=== PATIENT | female | born 1965 | race Caucasian/White ===

== ENCOUNTER 2018-08-27 06:00 | Inpatient (IN) | payer OTHER ==
[2018-08-23 17:48] VITALS: BMI 21.6
[2018-08-27] VITALS (21 sets, daily range): BP systolic 101–126; BP diastolic 50–70; PULSE 69–97; RESP 12–21; Ht 172.7 cm; Wt 64.3 kg
[~2018-08-27] VITALS: Ht 172.7 cm; Wt 64.3 kg
[~2018-08-27 06:00] MED LIST: CEFAZOLIN 2 GM/50 ML (PMX) 50 ML IVPB ONE; LACTATED RINGER'S 1,000 ML IV SCH
[2018-08-27] MEDS ORDERED: KETOROLAC 30 MG INJ ONE (06:27)
[2018-08-27] MEDS ORDERED: MIDAZOLAM 1 MG/ML 2 ML INJ ONE (06:27)
[2018-08-27] MEDS ORDERED: ONDANSETRON 4 MG INJ ONE (06:27)
[2018-08-27] MEDS ORDERED: PROPOFOL 20 ML ONE ×2 (06:27→08:20)
[2018-08-27] MEDS ORDERED: CEFAZOLIN 1 GM INJ ONE (06:27)
[2018-08-27] MEDS ORDERED: SUCCINYLCHOLINE CHLORIDE 100 MG/5 ML SYG IV ONE (06:28)
[2018-08-27] MEDS ORDERED: ROCURONIUM 50 MG INJ ONE ×2 (06:28→10:28)
[2018-08-27] MEDS ORDERED: EPHEDrine 25 MG/5 ML SYG ONE (06:30)
[2018-08-27] MEDS ORDERED: DESFLURANE 15 MIN ONE (06:30)
[2018-08-27] MEDS ORDERED: ATOR20TA38 PO (06:53)
[2018-08-27] MEDS ORDERED: GELATIN SIZE 100 SPONGE ONE (06:56)
[2018-08-27] MEDS ORDERED: THROMBIN 5000 UNIT VIAL ONE (06:56)
[2018-08-27] MEDS ORDERED: BUPIVACAINE 0.5%/EPI (SDV) 30 ML INJ ONE (06:57)
[2018-08-27] MEDS ORDERED: POLYMYXIN/BACITRACIN 1L IRRIG ONE (06:57)
--- NOTE | 2018-08-27 06:58 | PREAC ---
Date/Time of Note Date/Time of Note DATE: 08/27/18 TIME: 06:56 Anesthesia Eval and Record Evaluation Time Pre-Procedure Interview DATE: 08/27/18 TIME: 06:56 Age 53 Sex female NPO: 8 hrs Preoperative diagnosis C4-7 Diskopathy Planned procedure C4-7 Anterior Fusion Past Medical History Past Medical History: Includes Cardio: Dyslipidemia Pulm: Smoking Hx Surgery & Anesthesia Issues No known issue Meds Anticoagulation: No Beta Supriya within 24 hr: No Reason Beta Supriya not given: Pt. not on B-Supriya Reported Medications Atorvastatin Calcium* (Atorvastatin Calcium*) 20 Mg Tablet, 20 MG PO QHS, #30 TAB 08/27/18 Current Medications Lactated Ringer's 1,000 ml @ 0 mls/hr Q0M IV ; Start 08/27/18 at 06:00; Stop 08/27/18 at 23:00 Meds reviewed: Yes Allergies Coded Allergies: No Known Allergy (Unverified , 08/27/18) Allergies Reviewed: Yes Labs/Studies Labs Reviewed: Reviewed by anesthesiologist test: N/A Pre-procedure Exam Airway: Adequate mouth opening Mallampati: Mallampati II Teeth: Normal Lung: Normal Heart: Normal ASA Physical Status ASA physical status: 2 Emergency: None Planned Anesthetic General/MAC: ETT Pre-operative Attestations Prior to commencing anesthesia and surgery, the patient was re-evaluated, there was verification of: *The patient's identity *The results of appropriate recent lab work and preoperative vital signs *The above evaluation not changing prior to induction *Anesthetic plan, risk benefits, alternative and complications discussed with patient/family; questions answered; patient/family understands, accepts and wishes to proceed. YAEL CRUZ MD Aug 27, 2018 06:58
--- NOTE | 2018-08-27 07:13 | HPN ---
Date/Time of Note Date/Time of Note DATE: 08/27/18 TIME: 07:13 Interval H&P Admission Note Pt. seen H&P reviewed: No system changes JACKELIN ALCALA MD Aug 27, 2018 07:13
[2018-08-27] MEDS ORDERED: EPINEPHrine 0.1 MG/ML SYG ONE (08:20)
[2018-08-27] MEDS ORDERED: FENTAnyl 50 MCG/ML VIAL ONE ×4 (08:48→13:11)
[2018-08-27] MEDS ORDERED: HYDROmorphONE 1 MG/5 ML IV SYRINGE IV PRN (10:00)
[2018-08-27] MEDS ORDERED: ONDANSETRON 4 MG INJ IV PRN ×2 (10:00→14:30)
[2018-08-27] MEDS ORDERED: FENTAnyl 50 MCG/ML VIAL IV PRN (10:00)
[2018-08-27] MEDS ORDERED: DEXAMETHASONE 4 MG/ML 5 ML INJ ONE (10:14)
[2018-08-27] MEDS ORDERED: LABETALOL HCL 20MG INJ ONE (14:16)
[2018-08-27] MEDS ORDERED: HYDROCODONE/APAP (5/325) TAB PO PRN ×2 (14:30)
[2018-08-27] MEDS ORDERED: HYDROmorphONE 0.2 MG/ML PCA IV SCH (14:30)
[2018-08-27] MEDS ORDERED: NALOXONE (0.4 MG/ML) INJ IV PRN (14:30)
[2018-08-27] MEDS ORDERED: AL HYDROX/MG HYDROX/SIMETH 30 ML CUP PO PRN (14:30)
[2018-08-27] MEDS ORDERED: NACL 0.9% 3 ML SYG IV SCH (14:30)
[2018-08-27] MEDS ORDERED: PROCHLORPERAZINE 10 MG TAB PO PRN (14:30)
--- NOTE | 2018-08-27 14:32 | OPR ---
Date/Time of Note Date/Time of Note DATE: 08/27/18 TIME: 14:23 Operative Report Free Text/Dictation DATE OF OPERATION: 08/27/2018 PREOPERATIVE DIAGNOSES: 1. C4-5 degenerative disk disease with severe central and foraminal stenosis with myeloradiculopathy 2. C5-6 degenerative disk disease with severe central and foraminal stenosis with myeloradiculopathy 3. C6-7 degenerative disk disease with severe central and foraminal stenosis w ith myeloradiculopathy 4. Adult Degenerative Cervical scoliosis POSTOPERATIVE DIAGNOSES: 1. C4-5 degenerative disk disease with severe central and foraminal stenosis with myeloradiculopathy 2. C5-6 degenerative disk disease with severe central and foraminal stenosis with myeloradiculopathy 3. C6-7 degenerative disk disease with severe central and foraminal stenosis with myeloradiculopathy 4. Adult Degenerative Cervical scoliosis OPERATION PERFORMED: 1. Anterior cervical level C4-5 diskectomy with central and foraminal decompression 2. Anterior cervical disc C4-5 instrumented fusion with allograft 3.Anterior cervical level C5-6 diskectomy with central and foraminal decompression 4. Anterior cervical disc C5-6 instrumented fusion with allograft 5.Anterior cervical level C6-7 diskectomy with central and foraminal decompression 6. Anterior cervical disc C6-7 instrumented fusion with allograft 7. Use of operative microscope SURGEON: Jackelin Alcala MD NUTRITION ASSOCIATE: JOSE Bejarano INDICATIONS: Patient is a 53 -year-old female who presents with a several year history of neck and bilateral upper extremity pain with weakness. She also complained of issues with gait, balance and manual dexterity. After having failed all attempts at conservative management, surgical treatment was recommended. She understood the risks included, but were not limited to, infection, neurologic injury, verve root and spinal cord injury, blood loss, dysphagia, dysphonia, espohogeal injury, dural tear, pseudarthosis, adjacent segment disease, persistence of preoperative symptoms and a potential need for further operative procedures and she elected to proceed with surgery. PROCEDURE IN DETAIL: The patient was identified in the pre-operative area where the operative site was marked in indelible ink. He was brought in the operating room. General anesthesia was obtained. Preoperative antibiotics were given. She was carefully positioned supine on the radiolucent table. The arms were padded and tucked at the sides. The neck was sterilely prepped and draped in the usual fashion. A standard left-sided skin incision was made in a prominent anterior skin fold. This was continued down through subcutaneous tissue to the platysma fascia. Full-thickness skin flaps were developed. The platysma was split in line with the direction of its fibers. The dissection proceeded through the deep cervical fascia at the interval between the esophagus and spine. The prevertebral fascia was carefully incised, cleared off at the anterior aspect of the C4-5 disk space. The anterior longitudinal ligament was carefully isolated as was the longus coli bilaterally. A [place] retraction cannula was placed into the C5 vertebral body, and an intraoperative radiograph was obtained to confirm the location of the midline along with the operative level. Once this was confirmed, a 2nd [place] pin was placed in the C4 vertebral body, and the longus colli was mobilized bilaterally using bipolar cautery and an elevator. A deep self-retaining retractor was placed underneath the longus colli bilaterally and then distraction was applied across the interspace. The operative microscope was at this point brought in. The osteophyte projecting over the anterior aspect of the C4-5 disk space was at this point resected with a spinal rongeur, and then the anterior portion of the disk was incised with a #15 blade. The disk was excised in its entirety using a series of pituitary rongeurs and angled curettes back to the posterior longitudinal ligament. The uncovertebral osteophyte was resected to allow for foraminal decompression. A foraminotomy was performed bilaterally until a probe could be easily passed along the pathway of the C5 nerve roots. The posterior disk and the PLL were also removed using a nerve hook and a 2mm kerrison. The cord was noted to be decompressed. Hemostasis was obtained at this point, and then a series of trial sizers were used to select an appropriated size allograft spacer. Care was take not to disrupt the endplates. Intraoperative radiographs demonstrated good alignment of the trial, and then the final implant was selected and then inserted into the disk space. This was positioned appropriately and extended to the back of the C4 and C5 vertebral bodies. We used a 5mm height and 7 degree lordotic allograft implant. We then focused on the C5-6 level. Once this was confirmed, a 2nd [place] pin was placed in the C6 vertebral body, and the longus colli was mobilized bilaterally using bipolar cautery and an elevator. A deep self-retaining retractor was placed underneath the longus colli bilaterally and then distraction was applied across the interspace. The operative microscope was at this point brought in. The osteophyte projecting over the anterior aspect of the C5-6 disk space was at this point resected with a spinal rongeur, and then the anterior portion of the disk was incised with a #15 blade. The disk was excised in its entirety using a series of pituitary rongeurs and angled curettes back to the posterior longitudinal ligament. The uncovertebral osteophyte was resected to allow for foraminal decompression. A foraminotomy was performed bilaterally until a probe could be easily passed along the pathway of the C6 nerve roots. The posterior disk and the PLL were also removed using a nerve hook and a 2mm kerrison. The cord was noted to be decompressed. Hemostasis was obtained at this point, and then a series of trial sizers were used to select an appropriated size allograft spacer. Care was take not to disrupt the endplates. Intraoperative radiographs demonstrated good alignment of the trial, and then the final implant was selected and then inserted into the disk space. This was positioned appropriately and extended to the back of the C5 and C6 vertebral bodies. We used a 6mm height and 7 degree lordotic allograft implant. We then focused on the C6-7 level. Once this was confirmed, a 2nd [place] pin was placed in the C7 vertebral body, and the longus colli was mobilized bilaterally using bipolar cautery and an elevator. A deep self-retaining retractor was placed underneath the longus colli bilaterally and then distraction was applied across the interspace. The operative microscope was at this point brought in. The osteophyte projecting over the anterior aspect of the C6-7 disk space was at this point resected with a spinal rongeur, and then the anterior portion of the disk was incised with a #15 blade. The disk was excised in its entirety using a series of pituitary rongeurs and angled curettes back to the posterior longitudinal ligament. The uncovertebral osteophyte was resected to allow for foraminal decompression. A foraminotomy was performed bilaterally until a probe could be easily passed along the pathway of the C7 nerve roots. The posterior disk and the PLL were also removed using a nerve hook and a 2mm kerrison. The cord was noted to be decompressed. Hemostasis was obtained at this point, and then a series of trial sizers were used to select an appropriated size allograft spacer. Care was take not to disrupt the endplates. Intraoperative radiographs demonstrated good alignment of the trial, and then the final implant was selected and then inserted into the disk space. This was positioned appropriately and extended to the back of the C6 and C7 vertebral bodies. We used a 6mm height and 7 degree lordotic allograft implant. We then chose an appropriate sized plate (45mm) was placed and secured it in standard fashion. X-Rays were taken to ensure appropriate alignment and length of the plate as well as screw sizes. An extra 45 minutes was taken during this procedure due to the complexity of the case. Patient has a cervical scoliosis with significant disk space collapse with large anterior osteophytes. Due to the patients anatomy ( 18 degree cervical scoliosis deformity) and pathology, additional time was taken for dissection and implant placement. The operative site was washed out extensively with sterile normal saline. There was no significant bleeding. The Bland pins were removed, and the sites were blocked off with bone wax. The platysma fascia was then closed with 3-0 Vicryl s uture in a running simple fashion over a medium hemovac drain, followed by 4-0 moncryl to close the skin in a running subcuticular fashion. Dermabond was placed, followed by a sterile dressing. The patient was extubated and transferred out to the postanesthesia care unit in a hard collar in good condition. There were no complications. Procedure Date: Aug 27, 2018 Preoperative Diagnosis PREOPERATIVE DIAGNOSES: 1. C4-5 degenerative disk disease with severe central and foraminal stenosis with myeloradiculopathy 2. C5-6 degenerative disk disease with severe central and foraminal stenosis with myeloradiculopathy 3. C6-7 degenerative disk disease with severe central and foraminal stenosis with myeloradiculopathy 4. Adult Degenerative Cervical scoliosis Postoperative Diagnosis 1. C4-5 degenerative disk disease with severe central and foraminal stenosis with myeloradiculopathy 2. C5-6 degenerative disk disease with severe central and foraminal stenosis with myeloradiculopathy 3. C6-7 degenerative disk disease with severe central and foraminal stenosis with myeloradiculopathy 4. Adult Degenerative Cervical scoliosis Operation/Procedure Performed 1. Anterior cervical level C4-5 diskectomy with central and foraminal decompression 2. Anterior cervical disc C4-5 instrumented fusion with allograft 3.Anterior cervical level C5-6 diskectomy with central and foraminal decompression 4. Anterior cervical disc C5-6 instrumented fusion with allograft 5.Anterior cervical level C6-7 diskectomy with central and foraminal decompression 6. Anterior cervical disc C6-7 instrumented fusion with allograft 7. Use of operative microscope Surgeon see signature line Quality Nurse JOSE Bejarano Anesthesia Type: general Estimated Blood Loss: 50 - 100 ml's Transfusion none Specimen none Grafts/Implants none Complications none Pt Condition Post Procedure: stable Disposition: PACU Procedure Description PROCEDURE IN DETAIL: The patient was identified in the pre-operative area where the operative site was marked in indelible ink. He was brought in the operating room. General anesthesia was obtained. Preoperative antibiotics were given. She was carefully positioned supine on the radiolucent table. The arms were padded and tucked at the sides. The neck was sterilely prepped and draped in the usual fashion. A standard left-sided skin incision was made in a prominent anterior skin fold. This was continued down through subcutaneous tissue to the platysma fascia. Full-thickness skin flaps were developed. The platysma was split in line with the direction of its fibers. The dissection proceeded through the deep cervical fascia at the interval between the esophagus and spine. The prevertebral fascia was carefully incised, cleared off at the anterior aspect of the C4-5 disk space. The anterior longitudinal ligament was carefully isolated as was the longus coli bilaterally. A [place] retraction cannula was placed into the C5 vertebral body, and an intraoperative radiograph was obtained to confirm the location of the midline along with the operative level. Once this was confirmed, a 2nd [place] pin was placed in the C4 vertebral body, and the longus colli was mobilized bilaterally using bipolar cautery and an elevator. A deep self-retaining retractor was placed underneath the longus colli bilaterally and then distraction was applied across the interspace. The operative microscope was at this point brought in. The osteophyte projecting over the anterior aspect of the C4-5 disk space was at this point resected with a spinal rongeur, and then the anterior portion of the disk was incised with a #15 blade. The disk was excised in its entirety using a series of pituitary rongeurs and angled curettes back to the posterior longitudinal ligament. The uncovertebral osteophyte was resected to allow for foraminal decompression. A foraminotomy was performed bilaterally until a probe could be easily passed along the pathway of the C5 nerve roots. The posterior disk and the PLL were also removed using a nerve hook and a 2mm kerrison. The cord was noted to be decompressed. Hemostasis was obtained at this point, and then a series of trial sizers were used to select an appropriated size allograft spacer. Care was take not to disrupt the endplates. Intraoperative radiographs demonstrated good alignment of the trial, and then the final implant was selected and then inserted into the disk space. This was positioned appropriately and extended to the back of the C4 and C5 vertebral star dies. We used a 5mm height and 7 degree lordotic allograft implant. We then focused on the C5-6 level. Once this was confirmed, a 2nd [place] pin was placed in the C6 vertebral body, and the longus colli was mobilized bilaterally using bipolar cautery and an elevator. A deep self-retaining retractor was placed underneath the longus colli bilaterally and then distraction was applied across the interspace. The operative microscope was at this point brought in. The osteophyte projecting over the anterior aspect of the C5-6 disk space was at this point resected with a spinal rongeur, and then the anterior portion of the disk was incised with a #15 blade. The disk was excised in its entirety using a series of pituitary rongeurs and angled curettes back to the posterior longitudinal ligament. The uncovertebral osteophyte was resected to allow for foraminal decompression. A foraminotomy was performed bilaterally until a probe could be easily passed along the pathway of the C6 nerve roots. The posterior disk and the PLL were also removed using a nerve hook and a 2mm kerrison. The cord was noted to be decompressed. Hemostasis was obtained at this point, and then a series of trial sizers were used to select an appropriated size allograft spacer. Care was take not to disrupt the endplates. Intraoperative radiographs demonstrated good alignment of the trial, and then the final implant was selecte d and then inserted into the disk space. This was positioned appropriately and extended to the back of the C5 and C6 vertebral bodies. We used a 6mm height and 7 degree lordotic allograft implant. We then focused on the C6-7 level. Once this was confirmed, a 2nd [place] pin was placed in the C7 vertebral body, and the longus colli was mobilized bilaterally using bipolar cautery and an elevator. A deep self-retaining retractor was placed underneath the longus colli bilaterally and then distraction was applied across the interspace. The operative microscope was at this point brought in. The osteophyte projecting over the anterior aspect of the C6-7 disk space was at this point resected with a spinal rongeur, and then the anterior portion of the disk was incised with a #15 blade. The disk was excised in its entirety using a series of pituitary rongeurs and angled curettes back to the posterior longitudinal ligament. The uncovertebral osteophyte was resected to allow for foraminal decompression. A foraminotomy was performed bilaterally until a probe could be easily passed along the pathway of the C7 nerve roots. The posterior disk and the PLL were also removed using a nerve hook and a 2mm kerrison. The cord was noted to be decompressed. Hemostasis was obtained at this point, and then a series of trial sizers were used to select an appropriated size allograft spacer. Care was take not to disrupt the endplates. Intraoperative radiographs demonstrated good alignment of the trial, and then the final implant was select ed and then inserted into the disk space. This was positioned appropriately and extended to the back of the C6 and C7 vertebral bodies. We used a 6mm height and 7 degree lordotic allograft implant. We then chose an appropriate sized plate (45mm) was placed and secured it in standard fashion. X-Rays were taken to ensure appropriate alignment and length of the plate as well as screw sizes. An extra 45 minutes was taken during this procedure due to the complexity of the case. Patient has a cervical scoliosis with significant disk space collapse with large anterior osteophytes. Due to the patients anatomy ( 18 degree cervical scoliosis deformity) and pathology, additional time was taken for dissection and implant placement. The operative site was washed out extensively with sterile normal saline. There was no significant bleeding. The Bland pins were removed, and the sites were blocked off with bone wax. The platysma fascia was then closed with 3-0 Vicryl suture in a running simple fashion over a medium hemovac drain, followed by 4-0 moncryl to close the skin in a running subcuticular fashion. Dermabond was placed, followed by a sterile dressing. The patient was extubated and transferred out to the postanesthesia care unit in a hard collar in good condition. There were no complications. We will observe her in the PACU. If she shows any signs of respiratory distress we may admit her to the ICU for 24 observation. JACKELIN ALCALA MD Aug 27, 2018 14:32
--- NOTE | 2018-08-27 14:40 | PAC ---
Date/Time of Note Date/Time of Note DATE: 08/27/18 TIME: 14:40 Post-Anesthesia Notes Post-Anesthesia Note Last documented vital signs Vital Signs Date Temp Pulse Resp B/P (MAP) Pulse Ox O2 O2 Flow FiO2 Time Delivery Rate 08/27/18 97.7 90 18 117/68 95 06:55 (84) Activity: WNL Respiratory function: WNL Cardiovascular function: WNL Mental status: Baseline Pain reasonably controlled: Yes Hydration appropriate: Yes Nausea/Vomiting absent: Yes YAEL CRUZ MD Aug 27, 2018 14:40
[2018-08-27] MEDS ORDERED: ACETAMINOPHEN 1000MG/100ML IV 100 ML IVPB ONE (15:00)
[2018-08-27] MEDS: CEFAZOLIN 1 GM/50 ML (PMX) 50 ML IVPB SCH ×2 (18:33→23:54)
[2018-08-27] MEDS: DEXTROSE 5%-0.45% NACL 1,000 ML IV SCH (18:33)
--- NOTE | 2018-08-27 19:21 | CONS ---
DATE OF ADMISSION: 08/27/2018 DATE OF CONSULTATION: TYPE OF CONSULTATION: Medical. Thank you, Dr. Alcala, for asking me to participate in medical management of this patient. REASON FOR CONSULTATION: Hyperlipidemia. HISTORY OF PRESENT ILLNESS: This 53-year-old female is now postop a cervical spine surgery by Dr. Emir osorio. She is awake and alert. She is having some neck pain that is being managed with medication . She says that, preoperatively, she was having neck pain into the shoulders and down her left arm w ith numbness. She, preoperatively, was diagnosed with multilevel cervical spine disease with severe central and foraminal stenosis with myeloradiculopathy. She underwent an anterior cervical diskectom y with central and foraminal decompression at levels C4-C5, C5-C6 and C6-C7 with instrumented fusion of those levels. The patient denies any prior history of heart disease or lung disease. She denies chest pain or shortness of breath at this time. PAST MEDICAL HISTORY: Remarkable for hyperlipidemia. PAST SURGICAL HISTORY: She underwent an oophorectomy and tubal ligation previously. SOCIAL HISTORY: She is a daily smoker. ALLERGIES: SHE HAS NO KNOWN DRUG ALLERGIES. CURRENT MEDICATION: Atorvastatin 20 mg a day. PHYSICAL EXAMINATION: GENERAL: Examination at this time reveals a well-developed female in no apparent distress. VITAL SIGNS: Temperature 98, pulse of 80, respirations 17, blood pressure 112/51, O2 saturation 99% on 2 liter nasal cannula. HEENT: Head is normocephalic. Eyes: Extraocular muscles intact. Nose and mouth are normal. NECK: She has a rigid neck brace on. She has a surgical wound anterior with a drain in place. LUNGS: Clear to auscultation. HEART: Regular rhythm. No murmurs, gallops or rubs. ABDOMEN: Soft, nontender, no masses or megaly. EXTREMITIES: No peripheral edema. IMPRESSION: This patient is now postop a cervical spine surgery for multilevel cervical spine stenos is. She is doing well. She has no chest pain or shortness of breath. I will manage the patient's h yperlipidemia. PLAN: 1. Resume routine medications. 2. Check labs in the morning. 3. Postop cervical spine surgery protocol. 4. I will follow the patient along with you medically. Dictated By: RON OCONNOR MD, ND/MIKEL Conf#: [id number] [facility]#: [id number] CC: JACKELIN ALCALA MD;*End*
[2018-08-27] MEDS: ATORVASTATIN 20 MG TAB PO SCH (22:36)
[2018-08-28] MEDS: DEXTROSE 5%-0.45% NACL 1,000 ML IV SCH ×4 (00:16→20:16)
[2018-08-28 02:40] VITALS: BP 118/66; PULSE 74; RESP 18
[2018-08-28] MEDS: CEFAZOLIN 1 GM/50 ML (PMX) 50 ML IVPB SCH ×2 (05:01→12:52)
[2018-08-28 07:23] VITALS: BP 121/62; PULSE 72; RESP 19
[2018-08-28] MEDS: DOCUSATE SODIUM 100 MG CAP PO SCH ×2 (08:39→20:00)
--- NOTE | 2018-08-28 12:22 | CONS ---
Assessment/Plan Assessment/Plan Hospital Course (Demo Recall) 1. Daina is now 1 day postop a cervical spine surgery, multilevel discectomy and fusion. She is feeling better and is doing well. She is awake and alert. She has been afebrile and her vital signs are stable. Laboratory tests are acceptable. She can continue physical therapy as tolerated. Consultation Date/Type/Reason Admit Date/Time Aug 27, 2018 at 06:00 Initial Consult Date Date/Time of Note DATE: 08/28/18 TIME: 12:19 24 HR Interval Summary Free Text/Dictation This patient is now 1 day postop a cervical spine surgery. She is awake and alert. She is feeling better. She has been up walking with physical therapy. Constitutional: no complaints, improved Exam/Review of Systems Exam Vitals Vital Signs Date Temp Pulse Resp B/P (MAP) Pulse Ox O2 O2 Flow FiO2 Time Delivery Rate 08/28/18 16 09:00 08/28/18 98.2 72 121/62 99 07:23 (81) 08/27/18 Nasal 2.0 20:10 Cannula Intake and Output 08/27/18 08/27/18 08/28/18 1515:00 23:00 07:00 IntakeIntake Total 3350 ml 100 ml 1200 ml OutputOutput Total 800 ml 1200 ml BalanceBalance 2550 ml 100 ml 0 ml Constitutional: alert, oriented, well developed Respiratory: clear to auscultation, normal air movement Cardiovascular: regular rate and rhythm Gastrointestinal: soft, non-tender Musculoskeletal: nl extremities to inspection Results Result Diagram: 08/28/18 0457 08/28/18 0457 Results 24hrs Laboratory Tests Test 08/28/18 04:57 08/28/18 07:37 Hemoglobin 12.1 Hematocrit 36.3 L Sodium Level 140 Potassium Level 4.9 Chloride Level 105 Carbon Dioxide Level 28 Anion Gap 7 Blood Urea Nitrogen 14 Creatinine 0.69 Est Glomerular Filtrat Rate mL/min > 60 Glucose Level 153 Calcium Level 8.7 Lab Scanned Report REFERENCE LAB Medications Medication Current Medications Dextrose/Sodium Chloride 1,000 ml @ 100 mls/hr Q10H IV Last administered on 08/28/18at 05:00; Admin Dose 100 MLS/HR; Start 08/27/18 at 14:16 Acetaminophen/ Hydrocodone Bitart ([place] (5/325)) 1 tab Q4H PRN PO .PAIN 1-5; Start 08/27/18 at 14:30 Acetaminophen/ Hydrocodone Bitart ([place] (5/325)) 2 tab Q4H PRN PO .PAIN 6-10; Start 08/27/18 at 14:30 Cefazolin Sodium 50 ml @ 100 mls/hr Q6 IVPB Last administered on 08/28/18 05:01; Admin Dose 100 MLS/HR; Start 08/27/18 at 18:00; Stop 08/28/18 at 12:29 Prochlorperazine (Compazine) 10 mg Q4H PRN PO NAUSEA/VOMITING; Start 08/27/18 at 14:30 Ondansetron HCl (Zofran Inj) 4 mg Q6H PRN IV NAUSEA/VOMITING Last administered on 08/28/18 08:38; Admin Dose 4 MG; Start 08/27/18 at 14:30 Al Hydrox/Mg Hydrox/Simethicone (Mag-Al Plus) 15 ml Q4H PRN PO .CONSTIPATION; Start 08/27/18 at 14:30 Docusate Sodium (Colace) 100 mg BID PO Last administered on 08/28/18 08:39; Admin Dose 100 MG; Start 08/28/18 at 09:00 Acetaminophen (Tylenol Tab) 650 mg Q4H PRN PO TEMP GREATER THAN 101F OR GA; Start 08/27/18 at 14:30 IV Flush (NS 3 ml) 3 ml PER PROTOCOL IV ; Start 08/27/18 at 14:30 Hydromorphone HCl (Dilaudid ELECTROCARDIOGRAPH TECHNICIAN) Q4PCA IV Last administered on 08/27/18at 14:52; Admin Dose 6 MG; Start 08/27/18 at 14:30 Naloxone HCl (Narcan) 0.2 mg Q2M PRN IV RR 8 BREATHS/MIN OR LESS; Start 08/27/18 at 14:30 Atorvastatin Calcium (Lipitor) 20 mg QHS PO Last administered on 08/27/18at 22:36; Admin Dose 20 MG; Start 08/27/18 at 21:00 RON OCONNOR MD Aug 28, 2018 12:22
--- NOTE | 2018-08-28 12:26 | CONS ---
Consultation Date/Type/Reason Admit Date/Time Aug 27, 2018 at 06:00 Initial Consult Date Date/Time of Note DATE: 08/28/18 TIME: 12:20 24 HR Interval Summary Free Text/Dictation S: 53 yo F POD#1 s/p C4-C7 ACDF. Patient is tolerating clears. She denies SOB. She has been OOB w/ PT. Pain controlled w/ SPOOLING MACHINE OPERATOR but this is giving her nausea. O: Vital Signs Date Temp Pulse Resp B/P (MAP) Pulse Ox O2 O2 Flow FiO2 Time Delivery Rate 08/28/18 16 09:00 08/28/18 98.2 72 19 121/62 99 07:23 (81) 08/28/18 18 05:00 Gen: AAOx3, NAD Spine: / LUE D/B/T/WE/WF, +SILT C5-T1, incision C/D/I Drain outut: 50 mL A/P: 53 yo F POD#1 s/p C4-C7 ACDF 1. 10mg IV Decadron x 1 2. D/C SPOOLING MACHINE OPERATOR 3. Start PO [place] 4.appreciate med recs 5. continue drain Exam/Review of Systems Exam Vitals Vital Signs Date Temp Pulse Resp B/P (MAP) Pulse Ox O2 O2 Flow FiO2 Time Delivery Rate 08/28/18 16 09:00 08/28/18 98.2 72 121/62 99 07:23 (81) 08/27/18 Nasal 2.0 20:10 Cannula Intake and Output 08/27/18 08/27/18 08/28/18 1515:00 23:00 07:00 IntakeIntake Total 3350 ml 100 ml 1200 ml OutputOutput Total 800 ml 1200 ml BalanceBalance 2550 ml 100 ml 0 ml Results Result Diagram: 08/28/18 0457 08/28/18 0457 Results 24hrs Laboratory Tests Test 08/28/18 04:57 08/28/18 07:37 Hemoglobin 12.1 Hematocrit 36.3 L Sodium Level 140 Potassium Level 4.9 Chloride Level 105 Carbon Dioxide Level 28 Anion Gap 7 Blood Urea Nitrogen 14 Creatinine 0.69 Est Glomerular Filtrat Rate mL/min > 60 Glucose Level 153 Calcium Level 8.7 Lab Scanned Report REFERENCE LAB Medications Medication Current Medications Dextrose/Sodium Chloride 1,000 ml @ 100 mls/hr Q10H IV Last administered on 08/28/18at 05:00; Admin Dose 100 MLS/HR; Start 08/27/18 at 14:16 Acetaminophen/ Hydrocodone Bitart ([place] (5/325)) 1 tab Q4H PRN PO .PAIN 1-5; Start 08/27/18 at 14:30 Acetaminophen/ Hydrocodone Bitart ([place] (5/325)) 2 tab Q4H PRN PO .PAIN 6-10; Start 08/27/18 at 14:30 Cefazolin Sodium 50 ml @ 100 mls/hr Q6 IVPB Last administered on 08/28/18at 05:01; Admin Dose 100 MLS/HR; Start 08/27/18 at 18:00; Stop 08/28/18 at 12:29 Prochlorperazine (Compazine) 10 mg Q4H PRN PO NAUSEA/VOMITING; Start 08/27/18 at 14:30 Ondansetron HCl (Zofran Inj) 4 mg Q6H PRN IV NAUSEA/VOMITING Last administered on 08/28/18at 08:38; Admin Dose 4 MG; Start 08/27/18 at 14:30 Al Hydrox/Mg Hydrox/Simethicone (Mag-Al Plus) 15 ml Q4H PRN PO .CONSTIPATION; Start 08/27/18 at 14:30 Docusate Sodium (Colace) 100 mg BID PO Last administered on 08/28/18at 08:39; Admin Dose 100 MG; Start 08/28/18 at 09:00 Acetaminophen (Tylenol Tab) 650 mg Q4H PRN PO TEMP GREATER THAN 101F OR GA; Start 08/27/18 at 14:30 IV Flush (NS 3 ml) 3 ml PER PROTOCOL IV ; Start 08/27/18 at 14:30 Hydromorphone HCl (Dilaudid SPOOLING MACHINE OPERATOR) Q4PCA IV Last administered on 08/27/18at 14:52; Admin Dose 6 MG; Start 08/27/18 at 14:30 Naloxone HCl (Narcan) 0.2 mg Q2M PRN IV RR 8 BREATHS/MIN OR LESS; Start 08/27/18 at 14:30 Atorvastatin Calcium (Lipitor) 20 mg QHS PO Last administered on 08/27/18at 22:36; Admin Dose 20 MG; Start 08/27/18 at 21:00 JACKELIN ALCALA MD Aug 28, 2018 12:26
[2018-08-28] MEDS ORDERED: DEXAMETHASONE 10 MG/ML 1 ML INJ IV ONE (12:30)
[2018-08-28] MEDS ORDERED: ACETAMINOPHEN 1000MG/100ML IV 100 ML IVPB SCH ×2 (13:00)
[2018-08-28] MEDS: LIDOCAINE 5% PATCH TD SCH (14:06)
[2018-08-28 14:27] VITALS: BP 132/61; PULSE 73; RESP 18
[2018-08-28 19:39] VITALS: BP 120/73; PULSE 74; RESP 16
[2018-08-28] MEDS: ATORVASTATIN 20 MG TAB PO SCH (20:00)
[2018-08-29] MEDS ORDERED: ACETAMINOPHEN 1000MG/100ML IV 100 ML IVPB SCH (02:00)
[2018-08-29 02:17] VITALS: BP 110/56; PULSE 72; RESP 16
[2018-08-29] MEDS: DEXTROSE 5%-0.45% NACL 1,000 ML IV SCH (06:16)
--- NOTE | 2018-08-29 08:05 | CONS ---
Assessment/Plan Assessment/Plan Assessment/Plan (Daily) 1. She is feeling much better post cx spine surgery 2. Follow up labs ordered. 3. Anticipate dc today Consultation Date/Type/Reason Admit Date/Time Aug 27, 2018 at 06:00 Initial Consult Date Date/Time of Note DATE: 08/29/18 TIME: 08:03 Detailed Summary Respiratory: No cough, No shortness of breath Cardiovascular: No chest pain, No palpitations Gastrointestinal: other (less difficulty swallowing, no BM as yet) Musculoskeletal: neck pain (mild) Exam/Review of Systems Exam Vitals Vital Signs Date Temp Pulse Resp B/P (MAP) Pulse Ox O2 O2 Flow FiO2 Time Delivery Rate 08/29/18 98.0 72 16 110/56 98 Room Air 02:17 (74) 08/27/18 2.0 20:10 Intake and Output 08/28/18 08/28/18 08/29/18 1515:00 23:00 07:00 IntakeIntake Total 250 ml 1760 ml 100 ml OutputOutput Total 780 ml 10 ml 405 ml BalanceBalance -530 ml 1750 ml -305 ml Neck: No jvd Respiratory: clear to auscultation Cardiovascular: regular rate and rhythm Gastrointestinal: soft Extremities: No edema, No tenderness Results Result Diagram: 08/28/18 0457 08/28/18 0457 Medications Medication Current Medications Dextrose/Sodium Chloride 1,000 ml @ 100 mls/hr Q10H IV Last administered on 08/28/18at 05:00; Admin Dose 100 MLS/HR; Start 08/27/18 at 14:16 Acetaminophen/ Hydrocodone Bitart ([place] (5/325)) 1 tab Q4H PRN PO .PAIN 1-5 Last administered on 08/28/18at 20:14; Admin Dose 1 TAB; Start 08/27/18 at 14:30 Acetaminophen/ Hydrocodone Bitart ([place] (5/325)) 2 tab Q4H PRN PO .PAIN 6-10; Start 08/27/18 at 14:30 Prochlorperazine (Compazine) 10 mg Q4H PRN PO NAUSEA/VOMITING; Start 08/27/18 at 14:30 Ondansetron HCl (Zofran Inj) 4 mg Q6H PRN IV NAUSEA/VOMITING Last administered on 08/28/18at 08:38; Admin Dose 4 MG; Start 08/27/18 at 14:30 Al Hydrox/Mg Hydrox/Simethicone (Mag-Al Plus) 15 ml Q4H PRN PO .CONSTIPATION; Start 08/27/18 at 14:30 Docusate Sodium (Colace) 100 mg BID PO Last administered on 08/28/18at 20:00; Admin Dose 100 MG; Start 08/28/18 at 09:00 Acetaminophen (Tylenol Tab) 650 mg Q4H PRN PO TEMP GREATER THAN 101F OR GA; Start 08/27/18 at 14:30 IV Flush (NS 3 ml) 3 ml PER PROTOCOL IV ; Start 08/27/18 at 14:30 Naloxone HCl (Narcan) 0.2 mg Q2M PRN IV RR 8 BREATHS/MIN OR LESS; Start 08/27/18 at 14:30 Atorvastatin Calcium (Lipitor) 20 mg QHS PO Last administered on 08/28/18at 20:0 0; Admin Dose 20 MG; Start 08/27/18 at 21:00 Lidocaine (Lidoderm) 1 patch DAILY TD Last administered on 08/28/18at 14:06; Admin Dose 1 PATCH; Start 08/28/18 at 13:00 Acetaminophen 100 ml @ 400 mls/hr Q12H IVPB Last administered on 08/29/18at 02:47; Admin Dose 400 MLS/HR; Start 08/29/18 at 02:00; Stop 08/29/18 at 13:59 SWATI LE MD Aug 29, 2018 08:04
[2018-08-29 08:13] VITALS: BP 127/66; PULSE 69; RESP 18
[2018-08-29] MEDS: DOCUSATE SODIUM 100 MG CAP PO SCH ×2 (09:44→20:49)
[2018-08-29] MEDS: LIDOCAINE 5% PATCH TD SCH (09:45)
[2018-08-29] MEDS ORDERED: DEXAMETHASONE 10 MG/ML 1 ML INJ IV ONE (12:30)
[2018-08-29 14:59] VITALS: BP 122/62; PULSE 81; RESP 18
[2018-08-29 19:35] VITALS: BP 102/56; PULSE 83; RESP 20
[2018-08-29] MEDS: ATORVASTATIN 20 MG TAB PO SCH (20:49)
[2018-08-29] MEDS: ACETAMINOPHEN 325 MG TAB PO PRN (21:15)
[2018-08-30 02:58] VITALS: BP 115/74; PULSE 50; RESP 20
--- NOTE | 2018-08-30 07:57 | CONS ---
Assessment/Plan Assessment/Plan Assessment/Plan (Daily) 1. Doing well post op cx spine surgery. 2. Labs rev 3. Anticipate dc today Consultation Date/Type/Reason Admit Date/Time Aug 27, 2018 at 06:00 Initial Consult Date Date/Time of Note DATE: 08/30/18 TIME: 07:56 Detailed Summary Respiratory: No shortness of breath Cardiovascular: No chest pain Gastrointestinal: no complaints Genitourinary: no complaints Musculoskeletal: neck pain (mild with min diff swallowing) Exam/Review of Systems Exam Vitals Vital Signs Date Temp Pulse Resp B/P (MAP) Pulse Ox O2 O2 Flow FiO2 Time Delivery Rate 08/30/18 98.1 50 20 115/74 95 Room Air 02:58 (88) 08/27/18 2.0 20:10 Intake and Output 08/29/18 08/29/18 08/30/18 1515:00 23:00 07:00 IntakeIntake Total 1220 ml 840 ml OutputOutput Total 260 ml 0 ml 5 ml BalanceBalance 960 ml 840 ml -5 ml Neck: No jvd Respiratory: clear to auscultation Cardiovascular: regular rate and rhythm Gastrointestinal: soft Extremities: No calf tenderness, No edema Results Result Diagram: 08/29/18 0815 08/29/18 0815 Results 24hrs Laboratory Tests Test 08/29/18 08:15 White Blood Count 10.8 Red Blood Count 3.92 L Hemoglobin 11.9 L Hematocrit 36.5 L Mean Corpuscular Volume 93.1 Mean Corpuscular Hemoglobin 30.4 Mean Corpuscular Hemoglobin Concent 32.6 Red Cell Distribution Width 11.9 Platelet Count 211 Mean Platelet Volume 10.6 H Immature Granulocytes % 0.600 H Neutrophils % 78.1 H Lymphocytes % 14.6 L Monocytes % 6.0 Eosinophils % 0.4 Basophils % 0.3 Nucleated Red Blood Cells % 0.0 Immature Granulocytes # 0.070 H Neutrophils # 8.5 H Lymphocytes # 1.6 Monocytes # 0.7 Eosinophils # 0.0 Basophils # 0.0 Nucleated Red Blood Cells # 0.0 Sodium Level 140 Potassium Level 4.0 Chloride Level 104 Carbon Dioxide Level 30 Anion Gap 6 Blood Urea Nitrogen 16 Creatinine 0.76 Est Glomerular Filtrat Rate mL/min > 60 Glucose Level 98 # Calcium Level 8.9 Phosphorus Level 3.2 Magnesium Level 2.3 Medications Medication Current Medications Acetaminophen/ Hydrocodone Bitart ([place] (5/325)) 1 tab Q4H PRN PO .PAIN 1-5 Last administered on 08/28/18 20:14; Admin Dose 1 TAB; Start 08/27/18 at 14:30 Acetaminophen/ Hydrocodone Bitart ([place] (5/325)) 2 tab Q4H PRN PO .PAIN 6-10; Start 08/27/18 at 14:30 Prochlorperazine (Compazine) 10 mg Q4H PRN PO NAUSEA/VOMITING; Start 08/27/18 at 14:30 Ondansetron HCl (Zofran Inj) 4 mg Q6H PRN IV NAUSEA/VOMITING Last administered on 08/28/18 08:38; Admin Dose 4 MG; Start 08/27/18 at 14:30 Al Hydrox/Mg Hydrox/Simethicone (Mag-Al Plus) 15 ml Q4H PRN PO .CONSTIPATION; Start 08/27/18 at 14:30 Docusate Sodium (Colace) 100 mg BID PO Last administered on 08/29/18 20:49; Admin Dose 100 MG; Start 08/28/18 at 09:00 Acetaminophen (Tylenol Tab) 650 mg Q4H PRN PO TEMP GREATER THAN 101F OR GA Last administered on 08/29/18 21:15; Admin Dose 650 MG; Start 08/27/18 at 14:30 IV Flush (NS 3 ml) 3 ml PER PROTOCOL IV ; Start 08/27/18 at 14:30 Naloxone HCl (Narcan) 0.2 mg Q2M PRN IV RR 8 BREATHS/MIN OR LESS; Start 08/27/18 at 14:30 Atorvastatin Calcium (Lipitor) 20 mg QHS PO Last administered on 08/29/18 20:49; Admin Dose 20 MG; Start 08/27/18 at 21:00 Lidocaine (Lidoderm) 1 patch DAILY TD Last administered on 08/29/18 09:45; Admin Dose 1 PATCH; Start 08/28/18 at 13:00 SWATI LE MD Aug 30, 2018 07:57
[2018-08-30 07:59] VITALS: BP 113/60; PULSE 67; RESP 18
--- NOTE | 2018-08-30 07:59 | PDOCDIS ---
Discharge Instructions DIAGNOSIS Discharge Diagnosis C4-7 stenosis CONDITION [id number] Patient Condition: [id number] Good HOME CARE INSTRUCTIONS: [id number] Diet Instructions: [id number] Regular ACTIVITY: [id number] Activity Restrictions: [id number] Slowly Increase Activity Rest between Activity Avoid heavy lifting Do not Drive Do not operate Machinery Do not operate Power Tool Avoid Heavy Housework [id number] Bathing Restrictions: [id number] Shower FOLLOW UP/APPOINTMENTS Follow-up Plan Follow-up with Dr. Alcala in 2 weeks JACKELIN ALCALA MD Aug 30, 2018 07:59
[2018-08-30] MEDS ORDERED: DEXAMETHASONE 4 MG/ML 1 ML INJ IV ONE (08:00)
[2018-08-30] MEDS: LIDOCAINE 5% PATCH TD SCH (09:40)
[2018-08-30] MEDS: DOCUSATE SODIUM 100 MG CAP PO SCH (09:40)
[2018-08-30] MEDS: ACETAMINOPHEN 325 MG TAB PO PRN (09:53)
== END 2018-08-30 10:15 | disposition home or self-care (01) | DRG 473 ==
LOC: REC 06:00 → MS1 15:31
PROVIDERS: ADMIT Orthopaedic Surgery; ATTEND Orthopaedic Surgery
PROC: 0RG2070 Fusion of 2 or more Cervical Vertebral Joints with Autologous Tissue Substitute, Anterior Approach, Anterior Column, Open Approach (ICD-10-PCS; 2018-08-27)
PROC: 0RT30ZZ Resection of Cervical Vertebral Disc, Open Approach (ICD-10-PCS; principal; 2018-08-27 07:30)
DX: M50.023 Cervical disc disorder at C6-C7 level with myelopathy (principal); M50.123 Cervical disc disorder at C6-C7 level with radiculopathy; M41.82 Other forms of scoliosis, cervical region; E78.5 Hyperlipidemia, unspecified; E78.00 Pure hypercholesterolemia, unspecified
CPT/HCPCS: 72050; 80048; 83735; 84100; 85014; 85018; 85025; 86850; 86900; 86901; 87086; 97116; 97161; 97530; J0131; J0171; J0690; J1100; J1170; J1885; J2250; J2405; J3010; J7042